=== PATIENT | male | born 2000 | race Caucasian/White ===

== ENCOUNTER 2020-11-30 07:31 | Outpatient (CLI) | payer OTHER, SELFPAY ==
[2020-11-30 08:51] LABS: Anion Gap 10 mmol/L (8-16); Blood Urea Nitrogen 12 mg/dL (9-20); Calcium 9.6 mg/dL (8.4-10.2); Carbon Dioxide 29 mmol/L (22-30); Chloride 101 mmol/L (98-107); Estimated Glomerular Filt Rate > 60; Glucose 202 mg/dL (75-110); Potassium 3.7 mmol/L (3.4-5.0); Sodium 140 mmol/L (137-145)
[2020-11-30 09:01] LABS: LDL Cholesterol Direct 123 mg/dL
[2020-11-30 09:35] LABS: Creatinine Urine 106.4 mg/dL
[2020-11-30 09:39] LABS: Microalbumin Urine Random 8.5 mg/L (0-16.7)
== END 2020-11-30 07:32 | disposition home or self-care (01) ==
LOC: ANHLAB 07:37
DX: E78.00 Pure hypercholesterolemia, unspecified (principal); E10.9 Type 1 diabetes mellitus without complications
CPT/HCPCS: 36415; 80048; 82043; 83721; 84443

== ENCOUNTER 2021-10-02 07:26 | Outpatient (CLI) | payer OTHER, SELFPAY ==
[2021-10-02 08:12] LABS: Alanine Aminotransferase 45 U/L (4-50); Albumin Level 4.8 g/dL (3.5-5.1); Alkaline Phosphatase 117 U/L (38-126); Anion Gap 9 mmol/L (8-16); Aspartate Amino Transferase 38 U/L (17-59); Bilirubin,Total 0.5 mg/dL (0.2-1.3); Blood Urea Nitrogen 14 mg/dL (9-20); Calcium 9.1 mg/dL (8.4-10.2); Carbon Dioxide 27 mmol/L (22-30); Chloride 102 mmol/L (98-107); Cholesterol 204 mg/dL (0-200); Estimated Glomerular Filt Rate > 60; Glucose 130 mg/dL (65-110); HDL Direct 47 mg/dL; Hemoglobin A1C 6.7 % (<5.7); Sodium 138 mmol/L (137-145); Triglycerides 114 mg/dL (<150)
[2021-10-02 08:22] LABS: LDL Cholesterol Direct 113 mg/dL
[2021-10-02 08:40] LABS: Creatinine Urine 103.1 mg/dL
[2021-10-02 08:59] LABS: MALB Creatinine Ratio < 5.8 mg/g (0-30); Microalbumin Urine Random < 6.0 mg/L (0-16.7)
== END 2021-10-02 07:27 | disposition home or self-care (01) ==
DX: E10.9 Type 1 diabetes mellitus without complications (principal)
CPT/HCPCS: 36415; 80053; 80061; 82043; 83036; 84443

== ENCOUNTER 2022-10-01 07:16 | Outpatient (CLI) | payer OTHER, SELFPAY ==
[2022-10-01 08:04] LABS: Hematocrit 49.6 % (42.0-52.0); Hemoglobin 17.5 g/dL (14.0-18.0); Mean Corpuscular HGB Conc 35.3 g/dl (32-36); Mean Corpuscular Hemoglobin 30.1 pg (26-34); Mean Corpuscular Volume 85.4 fl (80-100); Platelet Count Result 270 k/mm3 (150-375); Red Blood Count 5.81 M/mm3 (4.6-6.20); Red Cell Distribution Width 12.4 % (11.5-14.5); White Blood Count 9.2 K/mm3 (4.5-10.0)
[2022-10-01 08:15] LABS: Alanine Aminotransferase 20 U/L (6-50); Albumin Level 5.1 g/dL (3.5-5.1); Alkaline Phosphatase 92 U/L (38-126); Anion Gap 7 mmol/L (8-16); Aspartate Amino Transferase 20 U/L (17-59); Bilirubin,Total 0.8 mg/dL (0.2-1.3); Blood Urea Nitrogen 12 mg/dL (9-20); Calcium 9.6 mg/dL (8.4-10.2); Carbon Dioxide 29 mmol/L (22-30); Chloride 99 mmol/L (98-107); Cholesterol 196 mg/dL (0-200); Estimated Glomerular Filt Rate > 60; Glucose 111 mg/dL (65-110); HDL Direct 56 mg/dL; Potassium 3.8 mmol/L (3.4-5.0); Sodium 135 mmol/L (137-145); Triglycerides 64 mg/dL (<150)
[2022-10-01 08:27] LABS: LDL Cholesterol Direct 113 mg/dL
[2022-10-01 08:32] LABS: Creatinine Urine 188.5 mg/dL
[2022-10-01 08:35] LABS: Microalbumin Urine Random 7.6 mg/L (0-16.7)
== END 2022-10-01 07:17 | disposition home or self-care (01) ==
LOC: ANHLAB 07:19
DX: E10.9 Type 1 diabetes mellitus without complications (principal)
CPT/HCPCS: 36415; 80053; 80061; 82043; 84443; 85027